=== PATIENT | male | born 1930 | race Caucasian/White ===

== ENCOUNTER 2016-10-15 06:58 | Inpatient (IN) | payer MEDICARE, MEDICAID ==
[2016-10-15] VITALS (18 sets, daily range): BP systolic 105–135; RESP 22–36; TEMP 97.1–99.3; Ht 175.3 cm; Wt 78.7 kg
[~2016-10-15] VITALS: Ht 175.3 cm; Wt 78.7 kg
[2016-10-15] MEDS ORDERED: DILTIAZEM 50 MG/10 ML VIAL IV ONE (07:02)
[2016-10-15] MEDS ORDERED: SODIUM CHLORIDE 0.9% 500 ML IV ONE ×2 (07:02→10:04)
[2016-10-15] MEDS ORDERED: ED DILTIAZEM DRIP 125 ML IV ONE (07:02)
[2016-10-15] MEDS ORDERED: METHYLPRED SOD SUCC 125 MG/2 ML VIAL ONE (07:06)
[2016-10-15] MEDS ORDERED: ACETAMINOPHEN 650 MG SUPP RECTAL ONE (07:29)
[2016-10-15] MEDS ORDERED: LORAZEPAM 2 MG/ML VIAL ONE (07:35)
[2016-10-15] MEDS ORDERED: SODIUM CHLORIDE 0.9% 1,000 ML ONE (07:36)
[2016-10-15] MEDS ORDERED: DILTIAZEM CD 180 MG CAP PO SCH (09:25)
[2016-10-15] MEDS ORDERED: PHARMACY TO DOSE LEVAQUIN IV SCH (09:25)
[2016-10-15] MEDS ORDERED: DEXTROSE 50% SYRINGE 50 ML IV PRN (09:25)
[2016-10-15] MEDS: Aspirin 325 MG TAB PO SCH (09:25)
[2016-10-15] MEDS: METHYLPRED SOD SUCC 125 MG/2 ML VIAL IV SCH ×3 (09:25→23:18)
[2016-10-15] MEDS ORDERED: PHARMACY TO DOSE VANCOMYCIN IV SCH (09:25)
[2016-10-15] MEDS ORDERED: ACETAMINOPHEN 325 MG TAB PO PRN (09:25)
[2016-10-15] MEDS ORDERED: NEB-XOPENEX 0.63 MG/3 ML INH PRN (09:25)
[2016-10-15] MEDS ORDERED: GLUCAGON 1 MG VIAL IM PRN (09:25)
[2016-10-15] MEDS ORDERED: CARDIZEM 1 MG/ML DRIP 125 ML IV SCH (09:40)
[2016-10-15] MEDS: DUONEB INH SCH ×4 (11:00→22:50)
[2016-10-15] MEDS ORDERED: DIGOXIN 0.125 MG TAB PO SCH (12:00)
[2016-10-15] MEDS: DIGOXIN 0.5 MG/2 ML AMP IV SCH (12:00)
[2016-10-15] MEDS ORDERED: [UNRECOGNIZED DRUG - OTHER] XX SCH (14:57)
[2016-10-15] MEDS ORDERED: MISSING DOSE XX ONE (15:00)
[2016-10-15] MEDS: VANCOMYCIN 1,500 MG in SODIUM CHLORIDE 0.9% 250 ML IV SCH (18:03)
[2016-10-15] MEDS: ENOXAPARIN 30 MG/0.3 ML SYR SUBQ SCH (18:03)
[2016-10-15] MEDS: NEB-BUDESONIDE 0.5 MG INH SCH (19:31)
[2016-10-15] MEDS ORDERED: QUEtiapine 25 MG TAB PO SCH (21:00)
[2016-10-15] MEDS: METOPROLOL XL 25 MG TAB PO SCH (21:04)
[2016-10-15] MEDS: LEVEMIR INSULIN SUBQ SCH (21:18)
[2016-10-16] VITALS (36 sets, daily range): BP systolic 106–148; RESP 20–30; TEMP 96.1–98.9
[2016-10-16] MEDS: VANCOMYCIN 1,500 MG in SODIUM CHLORIDE 0.9% 250 ML IV SCH ×2 (05:08→17:41)
[2016-10-16] MEDS: LEVOTHYROXINE 0.075 MG TAB PO SCH (06:17)
[2016-10-16] MEDS: DUONEB INH SCH ×5 (06:33→23:01)
[2016-10-16] MEDS: NEB-BUDESONIDE 0.5 MG INH SCH ×2 (06:33→19:11)
[2016-10-16] MEDS: LEVEMIR INSULIN SUBQ SCH ×2 (08:56→21:27)
[2016-10-16] MEDS: METHYLPRED SOD SUCC 125 MG/2 ML VIAL IV SCH ×3 (08:57→23:05)
[2016-10-16] MEDS: ENOXAPARIN 30 MG/0.3 ML SYR SUBQ SCH (08:57)
[2016-10-16] MEDS: METOPROLOL XL 25 MG TAB PO SCH ×2 (08:57→21:14)
[2016-10-16] MEDS: Aspirin 325 MG TAB PO SCH (08:57)
[2016-10-16] MEDS: LEVOFLOXACIN 750 MG/150 ML 150 ML IV SCH (09:11)
[2016-10-16] MEDS ORDERED: ENOXAPARIN 60 MG/0.6 ML SYR SUBQ SCH (10:40)
[2016-10-16] MEDS: KCL CR 8 MEQ TAB PO SCH ×3 (11:01→21:14)
[2016-10-16] MEDS: ENOXAPARIN 80 MG/0.8 ML SYR SUBQ SCH ×2 (12:00→23:09)
[2016-10-16] MEDS: DIGOXIN 0.5 MG/2 ML AMP IV SCH (13:04)
[2016-10-16] MEDS ORDERED: MISSING DOSE XX ONE (23:30)
[2016-10-17] VITALS (16 sets, daily range): BP systolic 95–145; RESP 16–28; TEMP 96.1–97.5
[2016-10-17] MEDS: VANCOMYCIN 1,500 MG in SODIUM CHLORIDE 0.9% 250 ML IV SCH ×2 (06:10→18:03)
[2016-10-17] MEDS: LEVOTHYROXINE 0.075 MG TAB PO SCH (06:10)
[2016-10-17] MEDS: DUONEB INH SCH ×4 (06:20→18:51)
[2016-10-17] MEDS: NEB-BUDESONIDE 0.5 MG INH SCH ×2 (06:22→18:51)
[2016-10-17] MEDS: LEVOFLOXACIN 750 MG/150 ML 150 ML IV SCH (09:55)
[2016-10-17] MEDS: METHYLPRED SOD SUCC 125 MG/2 ML VIAL IV SCH ×3 (09:55→23:06)
[2016-10-17] MEDS: LEVEMIR INSULIN SUBQ SCH ×2 (09:56→22:39)
[2016-10-17] MEDS: KCL CR 8 MEQ TAB PO SCH ×3 (09:56→21:42)
[2016-10-17] MEDS: METOPROLOL XL 25 MG TAB PO SCH ×2 (09:56→21:42)
[2016-10-17] MEDS: Aspirin 325 MG TAB PO SCH (09:56)
[2016-10-17] MEDS: DILTIAZEM CD 120 MG CAP PO SCH (10:17)
[2016-10-17] MEDS: DIGOXIN 0.125 MG TAB PO SCH (12:33)
[2016-10-17] MEDS: ENOXAPARIN 80 MG/0.8 ML SYR SUBQ SCH ×2 (12:34→23:07)
[2016-10-18] MEDS: DUONEB INH SCH ×6 (00:30→22:13)
[2016-10-18 03:54] VITALS: BP_SYST 132; RESP 18; TEMP 97.6
[2016-10-18] MEDS: VANCOMYCIN 1,250 MG in SODIUM CHLORIDE 0.9% 250 ML IV SCH ×2 (05:07→16:04)
[2016-10-18] MEDS: LEVOTHYROXINE 0.075 MG TAB PO SCH (06:33)
[2016-10-18] MEDS: NEB-BUDESONIDE 0.5 MG INH SCH ×2 (07:38→18:30)
[2016-10-18 07:52] VITALS: BP_SYST 126; RESP 18; TEMP 98
[2016-10-18] MEDS: LEVEMIR INSULIN SUBQ SCH ×2 (09:00→22:05)
[2016-10-18] MEDS: LEVOFLOXACIN 750 MG/150 ML 150 ML IV SCH (09:37)
[2016-10-18] MEDS: METHYLPRED SOD SUCC 125 MG/2 ML VIAL IV SCH ×2 (09:37→16:02)
[2016-10-18] MEDS: METOPROLOL XL 25 MG TAB PO SCH ×2 (09:38→21:50)
[2016-10-18] MEDS: Aspirin 325 MG TAB PO SCH (09:38)
[2016-10-18] MEDS: KCL CR 8 MEQ TAB PO SCH ×3 (09:38→21:50)
[2016-10-18] MEDS: DILTIAZEM CD 120 MG CAP PO SCH (09:39)
[2016-10-18] MEDS ORDERED: OXYCODONE/APAP 5/325 TAB PO PRN (09:50)
[2016-10-18 11:45] VITALS: BP_SYST 134; RESP 18; TEMP 97.8
[2016-10-18] MEDS ORDERED: OXYCODONE/APAP 5/325 TAB PO SCH ×2 (12:50→16:00)
[2016-10-18] MEDS: DIGOXIN 0.125 MG TAB PO SCH (13:27)
[2016-10-18] MEDS: Furosemide 20 MG/2 ML VIAL IV SCH (13:28)
[2016-10-18] MEDS: OXYCODONE/APAP 5/325 TAB PO SCH ×3 (13:28→21:50)
[2016-10-18] MEDS: ENOXAPARIN 80 MG/0.8 ML SYR SUBQ SCH (13:30)
[2016-10-18] MEDS ORDERED: SODIUM CHLORIDE 0.9% FLUSH BAG 500 ML IV PRN (14:15)
[2016-10-18 15:15] VITALS: BP_SYST 146; RESP 20; TEMP 98.2
[2016-10-18] MEDS ORDERED: LOPERAMIDE 2 MG CAPSULE PO PRN (15:15)
[2016-10-18] MEDS: VANCOMYCIN SUSP 250 MG/5 ML UDC PO SCH ×2 (18:42→21:50)
[2016-10-18 19:21] VITALS: BP_SYST 138; RESP 18; TEMP 98.3
[2016-10-18 23:57] VITALS: BP_SYST 134; RESP 16; TEMP 98.3
[2016-10-19] MEDS: ENOXAPARIN 80 MG/0.8 ML SYR SUBQ SCH ×2 (01:40→14:16)
[2016-10-19] MEDS: METHYLPRED SOD SUCC 125 MG/2 ML VIAL IV SCH ×4 (01:40→20:15)
[2016-10-19 03:47] VITALS: BP_SYST 128; RESP 16; TEMP 98.5
[2016-10-19] MEDS: NEB-BUDESONIDE 0.5 MG INH SCH ×2 (06:29→18:08)
[2016-10-19] MEDS: DUONEB INH SCH ×5 (06:29→22:15)
[2016-10-19] MEDS: LEVOTHYROXINE 0.075 MG TAB PO SCH (06:42)
[2016-10-19 08:46] VITALS: BP_SYST 122; RESP 18; TEMP 96.7
[2016-10-19] MEDS: Furosemide 20 MG/2 ML VIAL IV SCH (11:12)
[2016-10-19] MEDS: VANCOMYCIN SUSP 250 MG/5 ML UDC PO SCH ×5 (11:13→20:15)
[2016-10-19] MEDS: LEVEMIR INSULIN SUBQ SCH ×2 (11:13→20:15)
[2016-10-19] MEDS: DILTIAZEM CD 120 MG CAP PO SCH (11:14)
[2016-10-19] MEDS: Aspirin 325 MG TAB PO SCH (11:14)
[2016-10-19] MEDS: METOPROLOL XL 25 MG TAB PO SCH ×2 (11:14→20:15)
[2016-10-19] MEDS: KCL CR 8 MEQ TAB PO SCH ×4 (11:14→20:15)
[2016-10-19] MEDS: OXYCODONE/APAP 5/325 TAB PO SCH ×4 (11:23→20:15)
[2016-10-19] MEDS: DIGOXIN 0.125 MG TAB PO SCH (11:25)
[2016-10-19 11:44] VITALS: RESP 18
[2016-10-19 14:42] VITALS: BP_SYST 110; RESP 18; TEMP 96.8
[2016-10-19 20:24] VITALS: BP_SYST 152; RESP 22; TEMP 98.1
[2016-10-20] MEDS: ENOXAPARIN 80 MG/0.8 ML SYR SUBQ SCH ×3 (02:23→22:45)
[2016-10-20 05:00] VITALS: BP_SYST 128; RESP 20; TEMP 97.8
[2016-10-20] MEDS: LEVOTHYROXINE 0.075 MG TAB PO SCH (06:52)
[2016-10-20] MEDS: LEVEMIR INSULIN SUBQ SCH ×2 (07:00→22:45)
[2016-10-20] MEDS: NEB-BUDESONIDE 0.5 MG INH SCH ×2 (07:25→18:29)
[2016-10-20] MEDS: DUONEB INH SCH ×5 (07:25→22:44)
[2016-10-20] MEDS: VANCOMYCIN SUSP 250 MG/5 ML UDC PO SCH ×4 (08:28→21:40)
[2016-10-20] MEDS: Aspirin 325 MG TAB PO SCH (08:28)
[2016-10-20] MEDS: OXYCODONE/APAP 5/325 TAB PO SCH ×3 (08:29→21:41)
[2016-10-20] MEDS: Furosemide 20 MG/2 ML VIAL IV SCH (08:30)
[2016-10-20] MEDS: METHYLPRED SOD SUCC 125 MG/2 ML VIAL IV SCH (08:31)
[2016-10-20] MEDS: DILTIAZEM CD 120 MG CAP PO SCH (08:34)
[2016-10-20] MEDS: METOPROLOL XL 25 MG TAB PO SCH ×2 (08:34→21:41)
[2016-10-20 08:44] VITALS: BP_SYST 138; RESP 20; TEMP 94.5
[2016-10-20] MEDS: KCL CR 8 MEQ TAB PO SCH ×3 (09:00→21:41)
[2016-10-20] MEDS ORDERED: METRONIDAZOLE 500MG/100ML 100 ML IV SCH (11:15)
[2016-10-20 11:18] VITALS: BP_SYST 126; RESP 18; TEMP 96
[2016-10-20] MEDS: METRONIDAZOLE 250 MG TAB PO SCH ×3 (13:52→21:41)
[2016-10-20] MEDS: DIGOXIN 0.125 MG TAB PO SCH (13:53)
[2016-10-20 15:57] VITALS: BP_SYST 120; RESP 18; TEMP 90.3
[2016-10-20 19:30] VITALS: BP_SYST 132; RESP 20; TEMP 97.8
[2016-10-20] MEDS ORDERED: METHYLPRED SOD SUCC 40 MG VIAL IV SCH (21:00)
[2016-10-20 22:42] VITALS: BP_SYST 126; RESP 18; TEMP 98
[2016-10-21 03:30] VITALS: BP_SYST 136; RESP 20; TEMP 97.4
[2016-10-21] MEDS: LEVOTHYROXINE 0.075 MG TAB PO SCH (05:47)
[2016-10-21 08:05] VITALS: BP_SYST 124; RESP 20; TEMP 98.2
[2016-10-21] MEDS: NEB-BUDESONIDE 0.5 MG INH SCH ×2 (08:17→19:22)
[2016-10-21] MEDS: DUONEB INH SCH ×5 (08:17→22:44)
[2016-10-21] MEDS: PREDNISONE 20 MG TAB PO SCH (09:00)
[2016-10-21] MEDS: VANCOMYCIN SUSP 250 MG/5 ML UDC PO SCH ×4 (09:00→20:41)
[2016-10-21] MEDS: KCL CR 8 MEQ TAB PO SCH ×3 (09:00→20:41)
[2016-10-21] MEDS: LEVEMIR INSULIN SUBQ SCH ×2 (09:00→22:04)
[2016-10-21] MEDS: OXYCODONE/APAP 5/325 TAB PO SCH ×2 (09:01→17:58)
[2016-10-21] MEDS: METRONIDAZOLE 250 MG TAB PO SCH ×4 (09:01→20:40)
[2016-10-21] MEDS: Aspirin 325 MG TAB PO SCH (09:01)
[2016-10-21] MEDS: DILTIAZEM CD 120 MG CAP PO SCH (09:01)
[2016-10-21] MEDS: TORSEMIDE 20 MG TAB PO SCH (09:01)
[2016-10-21] MEDS: METOPROLOL XL 25 MG TAB PO SCH ×2 (09:01→20:41)
[2016-10-21] MEDS ORDERED: MISSING DOSE XX ONE (09:15)
[2016-10-21 11:47] VITALS: BP_SYST 132; RESP 18; TEMP 97.8
[2016-10-21] MEDS: DIGOXIN 0.125 MG TAB PO SCH (13:16)
[2016-10-21] MEDS: ENOXAPARIN 80 MG/0.8 ML SYR SUBQ SCH (13:17)
[2016-10-21 15:57] VITALS: BP_SYST 125; RESP 18; TEMP 97.9
[2016-10-21 19:55] VITALS: BP_SYST 122; RESP 18; TEMP 97.4
[2016-10-22] MEDS: OXYCODONE/APAP 5/325 TAB PO SCH ×2 (00:21→09:05)
[2016-10-22] MEDS: ENOXAPARIN 80 MG/0.8 ML SYR SUBQ SCH ×2 (00:22→12:18)
[2016-10-22 00:25] VITALS: BP_SYST 142; RESP 18; TEMP 97.4
[2016-10-22 04:13] VITALS: BP_SYST 138; RESP 18; TEMP 96.6
[2016-10-22] MEDS: DUONEB INH SCH ×2 (06:19→10:12)
[2016-10-22] MEDS: NEB-BUDESONIDE 0.5 MG INH SCH (06:20)
[2016-10-22] MEDS: LEVOTHYROXINE 0.075 MG TAB PO SCH (06:23)
[2016-10-22 07:47] VITALS: BP_SYST 132; RESP 20; TEMP 97.3
[2016-10-22] MEDS: VANCOMYCIN SUSP 250 MG/5 ML UDC PO SCH ×3 (08:59→12:16)
[2016-10-22] MEDS: PREDNISONE 20 MG TAB PO SCH (08:59)
[2016-10-22] MEDS: Aspirin 325 MG TAB PO SCH (09:00)
[2016-10-22] MEDS: DILTIAZEM CD 120 MG CAP PO SCH (09:00)
[2016-10-22] MEDS: TORSEMIDE 20 MG TAB PO SCH (09:00)
[2016-10-22] MEDS: METRONIDAZOLE 250 MG TAB PO SCH ×2 (09:00→12:19)
[2016-10-22] MEDS: METOPROLOL XL 25 MG TAB PO SCH (09:00)
[2016-10-22] MEDS: LEVEMIR INSULIN SUBQ SCH (09:00)
[2016-10-22] MEDS: KCL CR 8 MEQ TAB PO SCH (09:00)
[2016-10-22 10:56] VITALS: BP_SYST 124; RESP 18; TEMP 97.4
[2016-10-22] MEDS: DIGOXIN 0.125 MG TAB PO SCH (12:18)
[2016-10-22 13:34] VITALS: BP_SYST 124; RESP 18; TEMP 97.4
[2016-10-22 14:03] VITALS: BP_SYST 118; RESP 20; TEMP 97.5
== END 2016-10-22 14:10 | disposition short-term general hospital (02) | DRG 189 ==
LOC: ENRESERVTM → ENRESERVDT → ER 06:58 → EMR 09:36 → ENPENDDIS 09:36 → PCU 14:31 → 4NT 10-18 11:20
PROVIDERS: ADMIT Internal Medicine; ATTEND Internal Medicine
DX: J96.01 Acute respiratory failure with hypoxia (principal); A04.7 Enterocolitis due to Clostridium difficile; J45.901 Unspecified asthma with (acute) exacerbation; F03.90 Unspecified dementia, unspecified severity, without behavioral disturbance, psychotic disturbance, mood disturbance, and anxiety; E66.01 Morbid (severe) obesity due to excess calories; I11.0 Hypertensive heart disease with heart failure; I50.30 Unspecified diastolic (congestive) heart failure; J44.9 Chronic obstructive pulmonary disease, unspecified; E11.621 Type 2 diabetes mellitus with foot ulcer; L97.429 Non-pressure chronic ulcer of left heel and midfoot with unspecified severity; L97.419 Non-pressure chronic ulcer of right heel and midfoot with unspecified severity; D72.829 Elevated white blood cell count, unspecified; Z51.5 Encounter for palliative care; H91.90 Unspecified hearing loss, unspecified ear; Z68.25 Body mass index [BMI] 25.0-25.9, adult; I48.0 Paroxysmal atrial fibrillation; I73.9 Peripheral vascular disease, unspecified; K21.9 Gastro-esophageal reflux disease without esophagitis; E03.9 Hypothyroidism, unspecified; Z66 Do not resuscitate; E11.649 Type 2 diabetes mellitus with hypoglycemia without coma; T38.0X5A Adverse effect of glucocorticoids and synthetic analogues, initial encounter; Y92.239 Unspecified place in hospital as the place of occurrence of the external cause; E11.65 Type 2 diabetes mellitus with hyperglycemia; Z79.84 Long term (current) use of oral hypoglycemic drugs; Z79.4 Long term (current) use of insulin; Z79.51 Long term (current) use of inhaled steroids
CPT/HCPCS: 36415; 36600; 71010; 80048; 80053; 80202; 81001; 82550; 82553; 82803; 82947; 83605; 83735; 83880; 84484; 85007; 85025; 85027; 85610; 85730; 87040; 87077; 87088; 87493; 93005; 94640; 94762; 94799; 96361; 96365; 96366; 96375